=== PATIENT | female | born 1950 | race African-American/Black ===

== ENCOUNTER 2016-06-29 09:04 | Observation (INO) | payer MEDICARE ==
[~2016-06-29] VITALS: Ht 157.5 cm; Wt 75.2 kg
[~2016-06-29 09:04] MED LIST: ACETAMIN500 M1 OR; ACYCLOVIR800 MG OR; ADLT ASA LOW81 MG; ALBUTEROL0.5 % IN; AMBIEN5 MG PO; AMLODIPINE10 MG PO; AMOXICILLIN500 MG OR; AMOXICILLIN875 MG OR; ASPIRIN ADULT L81 MG PO; BD INS 0.5ML 31G5/16 SC; CHERATUSSIN OR; CIPRO500 MG PO; DILAUDID2 MG PO; DIOVAN160 MG PO; DIOVAN80 MG PO; DOXYCYCL HYC100 M3 OR; DUONEB IN; FLEXERIL OR; FLEXERIL5 MG PO; GENTAMICIN SULF5 ML OP; HUMULIN 70/30 SC; LABETALOL200 MG PO; LABETALOL300 MG PO; LORAZEPAM1 MG PO; LORTAB 5 OR; LORTAB 7.5; LORTAB 7.5 OR; LORTAB5 OR; MEDDOSEPAK PO; NORVASC PO; NORVASC10 MG OR; NORVASC10 MG PO; NOVOLIN 70/30 INNLT SC; NOVOLIN 70/30 SC; NOVOLIN 701000 UNITS SC; PERCOCET 5/325M1 TAB PO; PREDNISONE20 MG OR; PRILOSEC20 MG/CAP PO; PRILOSEC40 MG PO; RENVELA800 MG PO; RESTORIL15 M1 OR; RESTORIL15 MG PO; TRAMADOL HCL50 MG PO; ULTRAM50 M1 OR; ULTRAM50 MG OR; VICOPROFEN OR; ZOFRAN4 MG/TAB PO; [UNRECOGNIZED DRUG - OTHER] PO
[2016-06-29 10:31] LABS: HEMATOCRIT 34.5 % (37.0-47.0); HEMOGLOBIN 10.9 g/dl (12.0-16.0); IMMATURE GRANULOCYTES 0.5 % (0.0-1.0); MEAN CELL VOLUME 103.6 fL CALC (80.0-100.0); MEAN CORPUSCULAR HGB 32.7 pG CALC (26.0-32.0); MEAN CORPUSCULAR HGB CONC 31.6 g/L CALC (32.0-36.0); NEUT# 4.25 thou/uL (2.00-7.15); RED BLOOD COUNT 3.33 mill/uL (4.20-5.60); RED CELL DISTRI WIDTH 12.1 % (11.5-15.5)
[2016-06-29 11:22] LABS: ALBUMIN 4.2 g/dL (3.2-5.0); BILIRUBIN, TOTAL 0.6 mg/dL (0.0-1.4); CALCIUM 9.7 mg/dL (8.4-10.2); POTASSIUM 4.4 mmol/l (3.5-5.1); TOTAL PROTEIN 7.4 g/dL (6.3-8.2)
[2016-06-29 11:24] LABS: CREATININE 5.5 mg/dL (0.5-1.0)
[2016-06-29 11:27] LABS: INFLUENZA A NONE DETECTED (NONE DETECT); INFLUENZA B NONE DETECTED (NONE DETECT)
[2016-06-29 19:20] VITALS: BP 155/77
[2016-06-29 23:35] VITALS: BP 125/66
[2016-06-30 04:25] VITALS: BP 150/74
[2016-06-30 06:19] LABS: HEMATOCRIT 33.1 % (37.0-47.0); HEMOGLOBIN 10.1 g/dl (12.0-16.0); IMMATURE GRANULOCYTES 0.2 % (0.0-1.0); MEAN CELL VOLUME 105.4 fL CALC (80.0-100.0); MEAN CORPUSCULAR HGB 32.2 pG CALC (26.0-32.0); MEAN CORPUSCULAR HGB CONC 30.5 g/L CALC (32.0-36.0); NEUT# 2.97 thou/uL (2.00-7.15); RED BLOOD COUNT 3.14 mill/uL (4.20-5.60); RED CELL DISTRI WIDTH 12.7 % (11.5-15.5)
[2016-06-30 06:34] LABS: ALBUMIN 3.8 g/dL (3.2-5.0); BILIRUBIN, TOTAL 0.5 mg/dL (0.0-1.4); CALCIUM 9.5 mg/dL (8.4-10.2); POTASSIUM 4.4 mmol/l (3.5-5.1); TOTAL PROTEIN 6.8 g/dL (6.3-8.2)
[2016-06-30 06:42] LABS: CREATININE 7.3 mg/dL (0.5-1.0)
[2016-06-30 08:24] VITALS: BP 157/69
[2016-06-30 08:26] VITALS: BP 157/69
[2016-06-30] MEDS ORDERED: DIOVAN160 MG PO (08:30)
[2016-06-30] MEDS ORDERED: PERCOCET 5/321 COMBO PO (08:37)
== END 2016-06-30 09:24 | disposition home or self-care (01) ==
LOC: ENPENDDIS → ED 09:04 → ED-I 12:34 → ED 13:15 → MS2 13:16 → ED-I 13:54 → ED 13:54 → MS2 06-30 09:24
PROVIDERS: Emergency Medicine; ADMIT Internal Medicine Geriatric Medicine; ATTEND Internal Medicine Geriatric Medicine
DX: R07.9 Chest pain, unspecified (principal); E11.22 Type 2 diabetes mellitus with diabetic chronic kidney disease; I12.0 Hypertensive chronic kidney disease with stage 5 chronic kidney disease or end stage renal disease; N18.6 End stage renal disease; S80.01XA Contusion of right knee, initial encounter; W22.09XA Striking against other stationary object, initial encounter; M19.90 Unspecified osteoarthritis, unspecified site; J40 Bronchitis, not specified as acute or chronic; R94.31 Abnormal electrocardiogram [ECG] [EKG]; Z99.2 Dependence on renal dialysis; Z79.4 Long term (current) use of insulin

== ENCOUNTER 2017-05-04 16:20 | Emergency (ER) | payer MEDICARE ==
[~2017-05-04] VITALS: Ht 157.5 cm; Wt 73.7 kg
[~2017-05-04 16:20] MED LIST changes: +PERCOCET 5/321 COMBO PO
[2017-05-04] MEDS ORDERED: EMLA CREAM5 GM/TUBE EX (17:03)
[2017-05-04 18:20] VITALS: BP 122/63
== END 2017-05-04 18:20 | disposition home or self-care (01) ==
LOC: ED 16:20
DX: T82.838A Hemorrhage due to vascular prosthetic devices, implants and grafts, initial encounter (principal); I12.0 Hypertensive chronic kidney disease with stage 5 chronic kidney disease or end stage renal disease; N18.6 End stage renal disease; Z99.2 Dependence on renal dialysis; Z79.899 Other long term (current) drug therapy; R06.02 Shortness of breath

== ENCOUNTER 2017-06-02 03:49 | Observation (INO) | payer MEDICARE ==
[~2017-06-02] VITALS: Ht 157.5 cm; Wt 71.4 kg
[~2017-06-02 03:49] MED LIST changes: +EMLA CREAM5 GM/TUBE EX
[2017-06-02] MEDS ORDERED: ELIQUIS2.5 MG PO (04:50)
[2017-06-02] MEDS ORDERED: ZETIA10 MG PO (04:53)
[2017-06-02] MEDS ORDERED: OXYCODONE HCL5 MG PO (04:55)
[2017-06-02 05:56] LABS: HEMATOCRIT 31.3 % (37.0-47.0); HEMOGLOBIN 9.6 g/dl (12.0-16.0); IMMATURE GRANULOCYTES 0.4 % (0.0-1.0); MEAN CORPUSCULAR HGB 31.9 pG CALC (26.0-32.0); MEAN CORPUSCULAR HGB CONC 30.7 g/L CALC (32.0-36.0); NEUT# 3.66 thou/uL (2.00-7.15); RED BLOOD COUNT 3.01 mill/uL (4.20-5.60); RED CELL DISTRI WIDTH 14.6 % (11.5-15.5)
[2017-06-02 06:07] LABS: BILIRUBIN, TOTAL 0.5 mg/dL (0.0-1.4); POTASSIUM 4.2 mmol/l (3.5-5.1); TOTAL PROTEIN 7.2 g/dL (6.3-8.2)
[2017-06-02 09:51] LABS: URINE BILIRUBIN - DIPSTICK NEGATIVE (NEGATIVE); URINE BLOOD DIPSTICK TRACE-INTACT (NEGATIVE); URINE COLOR YELLOW; URINE GLUCOSE - DIPSTICK 250 mg/dL (NEGATIVE); URINE KETONE NEGATIVE (NEGATIVE); URINE LEUK ESTERASE NEGATIVE (NEGATIVE); URINE NITRITE - DIPSTICK NEGATIVE (Negative); URINE PH 8.5 (4.5-8.0); URINE PROTEIN - DIPSTICK 100 mg/dL (NEG-TRACE); URINE UROBILINOGEN - DIPSTICK 0.2 E.U./dL (0.2)
[2017-06-02 09:52] LABS: URINE CLARITY SL CLOUDY; URINE EPITHELIAL CELLS FEW EPI/hpf (0-FEW); URINE RBC 0-2 RBC/hpf (0-5)
[2017-06-02 10:50] VITALS: BP 178/72
[2017-06-02 15:15] VITALS: BP 168/71
[2017-06-02 17:31] VITALS: BP 148/78
[2017-06-02 20:10] VITALS: BP 136/73
[2017-06-03 00:30] VITALS: BP 115/79
[2017-06-03 04:35] VITALS: BP 150/74
[2017-06-03 05:17] LABS: ALBUMIN 3.5 g/dL (3.2-5.0); BILIRUBIN, TOTAL 0.3 mg/dL (0.0-1.4); POTASSIUM 4.5 mmol/l (3.5-5.1); TOTAL PROTEIN 6.5 g/dL (6.3-8.2)
[2017-06-03 05:20] LABS: CREATININE 6.7 mg/dL (0.5-1.0)
[2017-06-03 05:41] LABS: HEMOGLOBIN 9.5 g/dl (12.0-16.0); MEAN CELL VOLUME 104.4 fL CALC (80.0-100.0); MEAN CORPUSCULAR HGB CONC 30.6 g/L CALC (32.0-36.0); RED BLOOD COUNT 2.97 mill/uL (4.20-5.60); RED CELL DISTRI WIDTH 14.8 % (11.5-15.5)
[2017-06-03 07:31] VITALS: BP 160/82
[2017-06-03 15:38] VITALS: BP 117/59
[2017-06-03 19:00] VITALS: BP 113/51
[2017-06-04 00:06] VITALS: BP 114/60
[2017-06-04 04:00] VITALS: BP 118/58
[2017-06-04 05:11] LABS: HEMATOCRIT 30.2 % (37.0-47.0); HEMOGLOBIN 9.1 g/dl (12.0-16.0); IMMATURE GRANULOCYTES 0.2 % (0.0-1.0); MEAN CELL VOLUME 105.6 fL CALC (80.0-100.0); MEAN CORPUSCULAR HGB 31.8 pG CALC (26.0-32.0); MEAN CORPUSCULAR HGB CONC 30.1 g/L CALC (32.0-36.0); NEUT# 2.28 thou/uL (2.00-7.15); RED BLOOD COUNT 2.86 mill/uL (4.20-5.60); RED CELL DISTRI WIDTH 14.9 % (11.5-15.5)
[2017-06-04 05:25] LABS: ALBUMIN 3.5 g/dL (3.2-5.0); BILIRUBIN, TOTAL 0.4 mg/dL (0.0-1.4); POTASSIUM 5.1 mmol/l (3.5-5.1); TOTAL PROTEIN 6.5 g/dL (6.3-8.2)
[2017-06-04 05:27] LABS: CREATININE 8.6 mg/dL (0.5-1.0)
[2017-06-04 08:12] VITALS: BP 132/64
[2017-06-04 08:17] VITALS: BP 132/64
[2017-06-04] MEDS ORDERED: OXYCODONE HCL5 MG PO (09:19)
[2017-06-04 09:58] LABS: PROTHROMBIN TIME 10.6 SECONDS (9.0-12.5)
== END 2017-06-04 10:49 | disposition home or self-care (01) ==
LOC: ED 03:49 → ED-I 09:11 → ED 09:41 → MS2 09:42
PROVIDERS: Emergency Medicine; Nurse Practitioner Family; ADMIT Internal Medicine; ATTEND Internal Medicine
DX: R07.9 Chest pain, unspecified (principal); R10.84 Generalized abdominal pain; I13.11 Hypertensive heart and chronic kidney disease without heart failure, with stage 5 chronic kidney disease, or end stage renal disease; E11.22 Type 2 diabetes mellitus with diabetic chronic kidney disease; N18.6 End stage renal disease; Z99.2 Dependence on renal dialysis; I25.10 Atherosclerotic heart disease of native coronary artery without angina pectoris; J45.909 Unspecified asthma, uncomplicated; M79.89 Other specified soft tissue disorders; N63.20 Unspecified lump in the left breast, unspecified quadrant; Z79.01 Long term (current) use of anticoagulants
CPT/HCPCS: S0164

== ENCOUNTER 2017-06-08 14:22 | Emergency (ER) | payer MEDICARE ==
[~2017-06-08] VITALS: Ht 157.5 cm; Wt 71.2 kg
[~2017-06-08 14:22] MED LIST changes: +ELIQUIS2.5 MG PO; +OXYCODONE HCL5 MG PO; +ZETIA10 MG PO
[2017-06-08 15:06] LABS: HEMATOCRIT 30.4 % (37.0-47.0); HEMOGLOBIN 9.7 g/dl (12.0-16.0); IMMATURE GRANULOCYTES 0.5 % (0.0-1.0); MEAN CORPUSCULAR HGB 31.9 pG CALC (26.0-32.0); MEAN CORPUSCULAR HGB CONC 31.9 g/L CALC (32.0-36.0); NEUT# 2.28 thou/uL (2.00-7.15); RED BLOOD COUNT 3.04 mill/uL (4.20-5.60); RED CELL DISTRI WIDTH 14.2 % (11.5-15.5)
[2017-06-08 15:26] LABS: BILIRUBIN, TOTAL 0.5 mg/dL (0.0-1.4); TOTAL PROTEIN 7.1 g/dL (6.3-8.2)
[2017-06-08 15:29] LABS: CREATININE 3.2 mg/dL (0.5-1.0); POTASSIUM 3.4 mmol/l (3.5-5.1)
[2017-06-08] MEDS ORDERED: PERCOCET 5/325M1 TAB PO (16:55)
[2017-06-08] MEDS ORDERED: COLACE100 MG PO (16:55)
[2017-06-08 17:19] VITALS: BP 178/78
== END 2017-06-08 18:03 | disposition home or self-care (01) ==
LOC: ED 14:22
PROVIDERS: Emergency Medicine
DX: R10.84 Generalized abdominal pain (principal); K59.00 Constipation, unspecified; I13.11 Hypertensive heart and chronic kidney disease without heart failure, with stage 5 chronic kidney disease, or end stage renal disease; N18.6 End stage renal disease; Z99.2 Dependence on renal dialysis; R94.31 Abnormal electrocardiogram [ECG] [EKG]

== ENCOUNTER 2017-06-22 05:53 | Day surgery (SDC) | payer MEDICARE ==
[~2017-06-22] VITALS: Ht 157.5 cm; Wt 70.8 kg
[~2017-06-22 05:53] MED LIST changes: +COLACE100 MG PO; +COUMADIN2.5 MG PO
[2017-06-22 09:09] LABS: ALBUMIN 3.8 g/dL (3.2-5.0); BILIRUBIN, TOTAL 0.5 mg/dL (0.0-1.4); TOTAL PROTEIN 6.9 g/dL (6.3-8.2)
[2017-06-22 09:11] LABS: CREATININE 7.7 mg/dL (0.5-1.0); POTASSIUM 4.8 mmol/l (3.5-5.1)
[2017-06-22 09:30] VITALS: BP 116/56
== END 2017-06-22 09:50 | disposition home or self-care (01) ==
LOC: ENDO 05:53 → ORM 07:00 → ENDO 08:00
PROVIDERS: Nurse Anesthetist, Certified Registered; ATTEND Internal Medicine Gastroenterology
PROC: 0DBN8ZX Excision of Sigmoid Colon, Via Natural or Artificial Opening Endoscopic, Diagnostic (ICD-10-PCS; principal; 2017-06-22)
DX: K57.32 Diverticulitis of large intestine without perforation or abscess without bleeding (principal); K51.90 Ulcerative colitis, unspecified, without complications; K63.5 Polyp of colon; K22.2 Esophageal obstruction; K64.4 Residual hemorrhoidal skin tags; K64.8 Other hemorrhoids; K44.9 Diaphragmatic hernia without obstruction or gangrene; I10 Essential (primary) hypertension; E11.9 Type 2 diabetes mellitus without complications; Z79.01 Long term (current) use of anticoagulants; Z86.010 Personal history of colon polyps

== ENCOUNTER 2018-06-09 19:12 | Emergency (ER) | payer MEDICARE ==
[~2018-06-09] VITALS: Ht 157.5 cm; Wt 66.0 kg
[2018-06-09] MEDS ORDERED: AFEDITAB60 MG PO (20:21)
[2018-06-09 20:31] VITALS: BP 156/89
[2018-06-09 20:31] LABS: HEMATOCRIT 39.5 % (37.0-47.0); IMMATURE GRANULOCYTES 0.2 % (0.0-5.0); MEAN CELL VOLUME 103.1 fL CALC (80.0-100.0); MEAN CORPUSCULAR HGB 31.3 pG CALC (26.0-32.0); MEAN CORPUSCULAR HGB CONC 30.4 g/L CALC (32.0-36.0); NEUT# 3.22 thou/uL (2.00-7.15); RED BLOOD COUNT 3.83 mill/uL (4.20-5.60); RED CELL DISTRI WIDTH 14.8 % (11.5-15.5)
[2018-06-09 20:35] LABS: ALBUMIN 4.5 g/dL (3.2-5.0); BILIRUBIN, TOTAL 0.6 mg/dL (0.0-1.4); POTASSIUM 4.7 mmol/l (3.5-5.1); TOTAL PROTEIN 7.5 g/dL (6.3-8.2)
[2018-06-09 20:37] LABS: CREATININE 9.1 mg/dL (0.5-1.0)
== END 2018-06-09 20:31 | disposition short-term general hospital (02) ==
LOC: ED 19:12
PROVIDERS: Family Medicine
DX: I44.1 Atrioventricular block, second degree (principal); I10 Essential (primary) hypertension; R06.02 Shortness of breath; R10.33 Periumbilical pain

== ENCOUNTER 2018-06-20 15:15 | Observation (INO) | payer MEDICARE ==
[~2018-06-20] VITALS: Ht 157.5 cm; Wt 68.2 kg
[~2018-06-20 15:15] MED LIST changes: +AFEDITAB60 MG PO
--- NOTE | 2018-06-20 15:34 | NUR ---
PT TO ROOM VIA EMS PT STATES FEELING WEAK THIS MORNING AND HAS FALLED TWICE. PT STATES LEFT SHOULDER PAIN FROM FALL THAT TRACELS DOWN THE ARM. PT IS AOX4. 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 NEW DIALYSIS PORT IN RIGHT THIGH. PT DENIES ANY C/P, SOB, N/V. MOTHER AT BEDSIDE.
[2018-06-20] MEDS ORDERED: ASPIRIN ADULT L81 MG PO (15:49)
[2018-06-20] MEDS ORDERED: CHLORTHALID25 MG PO (15:50)
[2018-06-20] MEDS ORDERED: LOSARTAN POTASS25 MG PO (15:51)
[2018-06-20] MEDS ORDERED: GABAPENTIN100 MG PO (15:51)
[2018-06-20] MEDS ORDERED: LABETALOL100 MG PO (15:52)
[2018-06-20] MEDS ORDERED: TYLENOL325 MG PO (15:54)
[2018-06-20] MEDS ORDERED: ALBUTEROL SUL0.083 % IN (15:55)
[2018-06-20] MEDS ORDERED: HYDROCO/APAP1 TA9 PO (15:57)
[2018-06-20] MEDS ORDERED: MILK OF MAG30 ML/UDC PO (15:57)
[2018-06-20] MEDS ORDERED: TEMAZEPAM15 MG PO (15:58)
--- NOTE | 2018-06-20 16:06 | NUR ---
PT WITH FAMILY AT BEDSIDE. CONVERSING. NO SIGNS OF DISTRESS. PT REPORTS RIGHT WRIST PAIN. MD NOTIFIED.
[2018-06-20 16:30] LABS: HEMATOCRIT 35.6 % (37.0-47.0); HEMOGLOBIN 10.3 g/dl (12.0-16.0); IMMATURE GRANULOCYTES 0.7 % (0.0-5.0); MEAN CELL VOLUME 105.3 fL CALC (80.0-100.0); MEAN CORPUSCULAR HGB 30.5 pG CALC (26.0-32.0); MEAN CORPUSCULAR HGB CONC 28.9 g/L CALC (32.0-36.0); NEUT# 3.26 thou/uL (2.00-7.15); RED BLOOD COUNT 3.38 mill/uL (4.20-5.60); RED CELL DISTRI WIDTH 14.7 % (11.5-15.5)
--- NOTE | 2018-06-20 16:51 | NUR ---
PT RESTING WITH EYES CLOSED. PACED ON CARDIAC MONTIOR WITH HR OF 72. NO SIGNS OF DISTRESS.
[2018-06-20 17:14] LABS: ALBUMIN 4.4 g/dL (3.2-5.0); BILIRUBIN, TOTAL 0.4 mg/dL (0.0-1.4); TOTAL PROTEIN 7.3 g/dL (6.3-8.2)
[2018-06-20 17:22] LABS: CREATININE 7.4 mg/dL (0.5-1.0); POTASSIUM 6.2 mmol/l (3.5-5.1)
--- NOTE | 2018-06-20 17:44 | NUR ---
pt sleeping soundly, awakens to tactile stimuli. ER MD at bedside.
--- NOTE | 2018-06-20 18:05 | NUR ---
PT AWAKEN FOR SCHEDULED MEDS. TOLERATED WELL. DISCUSSED MD ON PHONE WITH PRIMARY (DR WESTON)
--- NOTE | 2018-06-20 19:09 | NUR ---
DINNER TRAY BROUGHT TO PT BY TITLE CHECKER
--- NOTE | 2018-06-20 19:32 | NUR ---
TO FLOOR VIA STRETCHER ON POCKET MONITOR. PT FINISHED DINNER TRAY. PT WAS WALKED TO BE WITH MUCH ASSIST WITH 2 STAFF. SPASTIC MOVEMENTS OF LEGS.
--- NOTE | 2018-06-20 19:40 | NUR ---
PT. ARRIVED TO THE FLOOR VIA STRETCHER ACCOMPANIED BY ER NURSE; CHAPERONE IN AT BEDSIDE TO OBTAIN VS; PT. IS A MAX ASSIST WITH TRANSFERRING FROM STRETCHER TO BED; WILL BE IN SHORTLY TO ASSESS.
--- NOTE | 2018-06-20 20:31 | NUR ---
PT. RESTING IN BED WITH EYES CLOSED AND SNORING; AWAKENED FOR ADMISSION ASSESSMENT AND COMPLETED. PT. IS DROWSY BUT ABLE TO GIVE PMH; PT. 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 HAS DIALYSIS PORT TO RIGHT LEG WITH DRESSING COVERING; CDI. IV SITE PATENT TO LEFT WRIST AND ORDERED IVF HUNG. PT. QUESTIONS THIS E BUSINESS SPECIALIST ABOUT HOME MEDICATIONS; WILL CALL MD SHORTLY FOR FURTHER ORDERS; UPDATED ON POC. PT. IS INSTRUCTED ON HOW TO USE CALL LIGHT AND IS INFORMED NOT TO GET OOB ALONE PT. DID REPORT THAT SHE FELL 2X'S TODAY PRIOR TO ER ARRIVAL. BED ALARM IS SET WELL FOR SAFETY PRECAUTIONS. ENCOURAGED TO CALL FOR ANY NEEDS; CALL LIGHT IS IN REACH.
[2018-06-20 20:45] VITALS: BP 172/87
[2018-06-20 22:10] VITALS: BP 176/76
[2018-06-20 22:14] LABS: CREATININE 7.5 mg/dL (0.5-1.0); POTASSIUM 5.8 mmol/l (3.5-5.1)
--- NOTE | 2018-06-20 22:15 | NUR ---
SPOKE WITH DR. WESTON AND NOTIFIED HIM OF LATEST B/P 176/76 WELL PT'S HOME MEDICATIONS NOT BEING ORDERED; ALSO NOTIFIED HIM OF LATEST POTASSIUM AND CREATININE LEVELS; NEW ORDERS RECEIVED AT THIS TIME AND TO BE CARRIED OUT.
[2018-06-21 00:35] VITALS: BP 187/86
--- NOTE | 2018-06-21 00:41 | NUR ---
PT. SLEEPING; V/P OBTAINED AND IS 187/86, NOTIFIED DR. WESTON AND ORDERS RECEIVED AND TO BE CARRIED OUT.
--- NOTE | 2018-06-21 01:07 | NUR ---
PT. MEDICATED WITH ONE TIME ORDER OF LABETOLOL IV PER ORDER FOR ELEVATED B/P; WILL REASSESS AND CONTINUE TO MONITOR.
[2018-06-21 02:20] VITALS: BP 177/80
--- NOTE | 2018-06-21 02:20 | NUR ---
B/P REASSESSED AND NOW DOWN TO 177/80; WILL CONTINUE TO MONITOR.
[2018-06-21 03:18] VITALS: BP 185/87
--- NOTE | 2018-06-21 03:18 | NUR ---
REASSESSED B/P; NOW IS ; NOTIFIED DR. WESTON OF THIS AND OF LAST ADMINISTRATIONS OF LABETELOL; NEW ORDERS RECEIVED AND TO BE CARRIED OUT.
[2018-06-21 05:03] VITALS: BP 159/77
[2018-06-21 05:15] LABS: HEMOGLOBIN 9.3 g/dl (12.0-16.0); IMMATURE GRANULOCYTES 0.4 % (0.0-5.0); MEAN CORPUSCULAR HGB 30.8 pG CALC (26.0-32.0); MEAN CORPUSCULAR HGB CONC 29.1 g/L CALC (32.0-36.0); NEUT# 2.78 thou/uL (2.00-7.15); RED BLOOD COUNT 3.02 mill/uL (4.20-5.60); RED CELL DISTRI WIDTH 14.9 % (11.5-15.5)
[2018-06-21 05:48] LABS: ALBUMIN 3.6 g/dL (3.2-5.0); BILIRUBIN, TOTAL 0.3 mg/dL (0.0-1.4); TOTAL PROTEIN 6.2 g/dL (6.3-8.2)
[2018-06-21 05:50] LABS: CREATININE 7.8 mg/dL (0.5-1.0); POTASSIUM 5.9 mmol/l (3.5-5.1)
--- NOTE | 2018-06-21 06:28 | NUR ---
DR. WESTON NOTIFIED OF CRITICAL CREATININE WELL POTASSIUM LEVEL; NO NEW ORDERS RECEIVED AT THIS TIME; PER MD HE WOULD LIKE SLIMER TO CALL [facility] TO CHANGE TIME THIS AM FROM 0700 TO 1030; CALLED AND SPOKE TO SLIMER AND NOTIFIED HER OF THIS.
--- NOTE | 2018-06-21 06:33 | NUR ---
PER PILLOWCASE SEWER SHE SPOKE WITH DIALYSIS CENTER AND PT'S CHAIR IS BOOKED FOR 1100 AND HAS TO BE THERE BY 1045.
--- NOTE | 2018-06-21 07:20 | NUR ---
PT REPORT RECIEVED FROM JAYANT BHATT. PT SLEEPING. NO S/S OF DISTRESS. CALL LIGHT IN REACH. WILL CONTINUE TO MONITOR.
[2018-06-21 07:42] VITALS: BP 160/95
--- NOTE | 2018-06-21 07:42 | NUR ---
PT A/O X3. SPEECH IS CLEAR. RESP SHALLOW. LUNG SOUNDS CLEAR. TELE IN PLACE. BOWEL SOUNDS ACTIVE X4. STRONG RADIAL AND PEDAL PULSES. #22 LW NS @100. SITE APPEARS HEALTHY. RT UPPER THIGH PORT INTACT. PT DENIES ANY PAIN OR NEEDS. POC DISCUSSED. SAFETY PRECAUTIONS IN PLACE. CALL LIGHT IN REACH. WILL CONTINUE TO MONITOR.
[2018-06-21] MEDS ORDERED: PRILOSEC20 MG/CAP PO (08:29)
[2018-06-21] MEDS ORDERED: AMBIEN5 MG PO (08:29)
--- NOTE | 2018-06-21 09:07 | NUR ---
D/C INSTRUCTIONS DISCUSSED W/ PT. PT STATES UNDERSTANDING. IV REMOVED. CATHETER INTACT. TELE REMOVED. SENIOR LIVING AID TO ASSISTANCE PT BACK TO SENIOR LIVING VIA WC.
--- NOTE | 2018-06-21 09:15 | NUR ---
Discharge instructions given. Patient verbalizes understanding of same. Discharged in stable condition via Wheelchair to [facility] with *Other. All belongings sent with pt.
== END 2018-06-21 09:29 ==
LOC: ED 15:15 → ED-I 17:50 → ED 17:58 → MS2 17:59 → ED 17:59 → MS2 17:59 → ED 18:10 → MS2 18:11
PROVIDERS: Emergency Medicine; ADMIT Internal Medicine Geriatric Medicine; ATTEND Internal Medicine Geriatric Medicine
DX: E87.5 Hyperkalemia (principal); I12.0 Hypertensive chronic kidney disease with stage 5 chronic kidney disease or end stage renal disease; E11.22 Type 2 diabetes mellitus with diabetic chronic kidney disease; N18.6 End stage renal disease; I25.10 Atherosclerotic heart disease of native coronary artery without angina pectoris; M19.90 Unspecified osteoarthritis, unspecified site; M25.511 Pain in right shoulder; R25.2 Cramp and spasm; M25.541 Pain in joints of right hand; Z99.2 Dependence on renal dialysis; Z95.0 Presence of cardiac pacemaker

== ENCOUNTER 2018-07-06 21:08 | Observation (INO) | payer MEDICARE ==
[~2018-07-06] VITALS: Ht 157.5 cm; Wt 72.6 kg
[~2018-07-06 21:08] MED LIST changes: +ALBUTEROL SUL0.083 % IN; +CHLORTHALID25 MG PO; +GABAPENTIN100 MG PO; +HYDROCO/APAP1 TA9 PO; +LABETALOL100 MG PO; +LOSARTAN POTASS25 MG PO; +MILK OF MAG30 ML/UDC PO; +TEMAZEPAM15 MG PO; +TYLENOL325 MG PO
--- NOTE | 2018-07-06 21:09 | NUR ---
TO ROOM 6 VIA STRETCHER BY EMS
--- NOTE | 2018-07-06 21:15 | NUR ---
Pt to room # 6 via EMS stretcher
--- NOTE | 2018-07-06 21:20 | NUR ---
Pt c/o chest pain. EKG done at this time
[2018-07-06 22:17] LABS: HEMATOCRIT 35.9 % (37.0-47.0); HEMOGLOBIN 11.1 g/dl (12.0-16.0); IMMATURE GRANULOCYTES 0.5 % (0.0-5.0); MEAN CELL VOLUME 101.4 fL CALC (80.0-100.0); MEAN CORPUSCULAR HGB 31.4 pG CALC (26.0-32.0); MEAN CORPUSCULAR HGB CONC 30.9 g/L CALC (32.0-36.0); NEUT# 5.85 thou/uL (2.00-7.15); RED BLOOD COUNT 3.54 mill/uL (4.20-5.60); RED CELL DISTRI WIDTH 15.5 % (11.5-15.5)
--- NOTE | 2018-07-06 22:29 | NUR ---
PATIENT MEDICATED WITH PROTONIX AND CLONIDINE ORDERED. WILL MONITOR BP FOR EFFECT.
[2018-07-06 22:33] LABS: TOTAL PROTEIN 7.4 g/dL (6.3-8.2)
[2018-07-06 22:34] LABS: ALBUMIN 4.4 g/dL (3.2-5.0); BILIRUBIN, TOTAL 0.5 mg/dL (0.0-1.4); POTASSIUM 5.5 mmol/l (3.5-5.1)
[2018-07-06 22:35] LABS: CREATININE 8.8 mg/dL (0.5-1.0)
--- NOTE | 2018-07-06 23:30 | NUR ---
B/P 183/79. PT HAS NOT VOMITED SINCE ADMIT. NO BLEEDING NOTED
--- NOTE | 2018-07-07 00:14 | NUR ---
MEDICATED FOR B/P 175/81
--- NOTE | 2018-07-07 01:00 | NUR ---
B/P 131/60. CALLED TO FLOOR FOR REPORT.
--- NOTE | 2018-07-07 01:38 | NUR ---
REPORT GIVEN TO JAYANT TORO.
--- NOTE | 2018-07-07 01:43 | NUR ---
Admission Note Report Given to: JAYANT TORO. Transported by: Wheelchair X Stretcher Transported with: X Nurse Transporter X Patent IV O2 X Family Partner
--- NOTE | 2018-07-07 01:53 | NUR ---
PT ARRIVED TO THE FLOOR VIA STRETCHER ACCOMPANIED BY ED NURSE. PT AMBULATED TO BED FROM STRECTHER W/VERY WOBBLY UNSTEADY GAIT W/2X ASSIST. PT IS TALKING CLEARLY AND THEN JUMBLES HER WORDS/ED NURSE REPORTS SHE HAS BEEN DOING THAT PRIOR TO ADMISSION AND THIS WAS "HER NORM." WILL ASSESS PT, OBTAIN V/S AND CONTINUE TO MONITOR. PT IS AT THIS TIME ABLE TO ANSWER QUESTION APPROPRIATELY W/CLEAR SPEECH AND THEN WILL START MUMMBLING AND STATING "SEE I CAN'T TALK."
[2018-07-07 02:00] VITALS: BP 165/93
--- NOTE | 2018-07-07 02:30 | NUR ---
PT HAS BEEN ASSESSED AND PROVIDED ADDITIONAL BLANKETS C/O COLD. PT IS ASKING FOR TWO JUICES/PROVIDED. I WAS APPROACHING THE ROOM I COULD HEAR PT TALKING LOUDLY AND WHEN I ENTERED SHE STATED, SEE I CAN'T TALK AND CONTINUED WITH INAUDIBLE MUMBLE AND THEN PROCEEDED TO CALL GOLF BALL INSPECTOR BY NAME W/VERY CLEAR SPEECH AND ASK FOR MORE JUICE AND AN ADDITIONAL PILLOW W/ALL SPEECH VERY CLEAR AND QUICK. CALL LIGHT IS AT BEDSIDE AND PT REMINDED NOT TO AMBULATE W/OUT ASSISTANCE.
[2018-07-07 04:32] VITALS: BP 174/74
--- NOTE | 2018-07-07 05:15 | NUR ---
PT BP ELEVATED AT 184/80 MANUAL TO RIGHT UPPER ARM W/PT SLEEPING SOUNDLY AND AWOKEN FOR V/S ASSESS. HR 73. ED PHYSICIAN NOTIFIED AND ORDERS WERE RECEIVED TO LET HER SLEEP CONTINUE TO MONITOR AND LET MORNING PHYSICIAN ADJUST NEEDED. WILL CONTINUE TO MONITOR.
[2018-07-07 05:19] LABS: HEMATOCRIT 34.6 % (37.0-47.0); HEMOGLOBIN 10.2 g/dl (12.0-16.0); IMMATURE GRANULOCYTES 0.2 % (0.0-5.0); MEAN CORPUSCULAR HGB 30.4 pG CALC (26.0-32.0); MEAN CORPUSCULAR HGB CONC 29.5 g/L CALC (32.0-36.0); NEUT# 4.1 thou/uL (2.00-7.15); RED BLOOD COUNT 3.36 mill/uL (4.20-5.60); RED CELL DISTRI WIDTH 15.7 % (11.5-15.5)
[2018-07-07 05:46] LABS: CREATININE 8.9 mg/dL (0.5-1.0); POTASSIUM 5.5 mmol/l (3.5-5.1)
--- NOTE | 2018-07-07 06:38 | NUR ---
CALLED DR. WESTON REGARDING CRITICAL LABE AND BP/ORDERS RECEIVED.
[2018-07-07 07:00] VITALS: BP 159/83
[2018-07-07 08:00] VITALS: BP 153/60
--- NOTE | 2018-07-07 08:00 | NUR ---
ASSESSMENT IS COMPLTED: IV SITE IS FREE FROM REDNESS OR EDEMA. HR IS REG,PULSES ARE STRONG X4, ABD IS SOFT WITH ACTIVE BS. BREATH SOUNDS ARE CLEAR,BILATERALLY. TELE MONITOR IN PLACE. CONTINUE TO OSBERVE AND MONITOR.
--- NOTE | 2018-07-07 09:00 | NUR ---
IN TO VISIT WITH PT. INFORMED OF ALL THE MEDICATIONS THAT ARE BEING GIVEN TO HELP WITH HER ISSUES. VERBALIZED UNDERSTANDING.
[2018-07-07] MEDS ORDERED: ADALAT CC30 M1 PO (09:18)
[2018-07-07] MEDS ORDERED: OMEPRAZOLE20 MG PO (09:18)
--- NOTE | 2018-07-07 09:30 | NUR ---
ATTEMPTED TO CALL [facility] FOR THE DISCHARGE , PT HAS AN APPOINTMENT FOR DIALYSIS TODAY. CALLED AGAIN [phone], NO ANSWER.
--- NOTE | 2018-07-07 09:50 | NUR ---
10 MORE CALLS TO [facility] NO ANSWER , FAXED A NOTE TO THEM AT 1035 TO HAVE THEM CALL ME THEY RETURNED THE CALL AT 1040. ALL DISCHARGE INSTRUCTIONS GIVEN IV SITE DISCONTINUED CATHETER INTACT. NO REDNESS OR EDEMA. CONTINUE TO OBSERVE AND MONITOR.
--- NOTE | 2018-07-07 10:52 | NUR ---
SPOKE WITH NANDO SABA AT [facility] GAVE REPORT. THEN DR. WESTON CALLED BACK 1120 INQUIRED ABOUT PT NOT GOING TO [facility]. EXPLAINED THE DC TO [facility] THEN TO [facility].
[2018-07-07 11:10] VITALS: BP 141/45
--- NOTE | 2018-07-07 11:35 | NUR ---
ALL DISCHARGE INSTRUCTIONS GIVEN IV SITE DISCONITNUED CATHETER INTACT. Discharge instructions given. Patient verbalizes understanding of same. Discharged in stable condition via Wheelchair to Home with family. All belongings sent with pt.
== END 2018-07-07 11:38 ==
LOC: ED 21:08 → ED-I 23:30 → ED 23:50 → MS2 23:51
PROVIDERS: Family Medicine; ADMIT Internal Medicine Geriatric Medicine; ATTEND Internal Medicine Geriatric Medicine
DX: K92.0 Hematemesis (principal); I12.0 Hypertensive chronic kidney disease with stage 5 chronic kidney disease or end stage renal disease; E11.22 Type 2 diabetes mellitus with diabetic chronic kidney disease; N18.6 End stage renal disease; E87.5 Hyperkalemia; I25.10 Atherosclerotic heart disease of native coronary artery without angina pectoris; F41.1 Generalized anxiety disorder; Z99.2 Dependence on renal dialysis; Z95.0 Presence of cardiac pacemaker; F32.9 Major depressive disorder, single episode, unspecified
CPT/HCPCS: S0164

== ENCOUNTER 2018-08-27 12:49 | Emergency (ER) | payer MEDICARE ==
[~2018-08-27 12:49] MED LIST changes: +ADALAT CC30 M1 PO; +OMEPRAZOLE20 MG PO
== END 2018-08-27 12:55 | disposition left against medical advice (07) ==
LOC: ED 12:49 → LWOBS 12:55
DX: Z91.19 Patient's noncompliance with other medical treatment and regimen (principal)

== ENCOUNTER 2019-03-23 | Emergency (ER) | payer MEDICARE | END 2019-03-23 15:55 | disposition home or self-care (01) | DX: S70.02XA Contusion of left hip, initial encounter (principal); S60.221A Contusion of right hand, initial encounter; S63.501A Unspecified sprain of right wrist, initial encounter; I10 Essential (primary) hypertension; W01.0XXA Fall on same level from slipping, tripping and stumbling without subsequent striking against object, initial encounter; Y92.000 Kitchen of unspecified non-institutional (private) residence as the place of occurrence of the external cause ==

== ENCOUNTER 2019-04-05 | Emergency (ER) | payer MEDICARE ==
[2019-04-05] MEDS ORDERED: POLYTRIM OU (11:11)
[2019-04-05] MEDS ORDERED: CYCLOBENZAPR5 MG PO (11:16)
== END 2019-04-05 11:28 | disposition home or self-care (01) ==
DX: M54.5 Low back pain (principal); H10.9 Unspecified conjunctivitis; I12.9 Hypertensive chronic kidney disease with stage 1 through stage 4 chronic kidney disease, or unspecified chronic kidney disease; N18.9 Chronic kidney disease, unspecified

== ENCOUNTER 2019-06-10 | Emergency (ER) | payer MEDICARE ==
[~2019-06-10] MED LIST changes: +CYCLOBENZAPR5 MG PO; +POLYTRIM OU
[2019-06-10 14:32] LABS: HEMATOCRIT 37.4 % (37.0-47.0); HEMOGLOBIN 11.3 g/dl (12.0-16.0); IMMATURE GRANULOCYTES 0.3 % (0.0-5.0); MEAN CORPUSCULAR HGB 31.1 pG CALC (26.0-32.0); MEAN CORPUSCULAR HGB CONC 30.2 g/dL CAL (32.0-36.0); NEUT# 2.1 thou/uL (2.00-7.15); RED BLOOD COUNT 3.63 mill/uL (4.20-5.60); RED CELL DISTRI WIDTH 14.7 % (11.5-15.5)
[2019-06-10 14:44] LABS: ALBUMIN 4.4 g/dL (3.2-5.0); ALKALINE PHOSPHATASE 95 u/l (38-126); ANION GAP 16 (6-22 (CALC)); BILIRUBIN, TOTAL 0.6 mg/dL (0.0-1.4); BUN 41 mg/dL (8-23); BUN/CREATININE RATIO 5 (12-20 (CALC)); CARBON DIOXIDE 25 mmol/l (22-30); CHLORIDE 99 mmol/l (95-108); GFR 5 ML/MIN (>=60 (CALC)); GFR FOR AFR.AMER. 6 ML/MIN (>=60 (CALC)); POTASSIUM 4.7 mmol/l (3.5-5.1); SGOT/AST 21 u/l (9-36); SODIUM 136 mmol/l (137-146); TOTAL PROTEIN 7.6 g/dL (6.3-8.2)
[2019-06-10 14:48] LABS: PROTHROMBIN TIME 13.2 SECONDS (9.0-12.5)
[2019-06-10 14:49] LABS: INTERNATIONAL NORMALIZED RATIO 1.3 RATIO (0.7-1.3)
[2019-06-10 14:51] LABS: CREATININE 7.9 mg/dL (0.5-1.0)
--- NOTE | 2019-06-12 10:29 | NUR ---
Results faxed to [facility] [phone]. Notifed Nasra on 4N that results would be faxed.
== END 2019-06-10 16:51 ==
DX: I13.2 Hypertensive heart and chronic kidney disease with heart failure and with stage 5 chronic kidney disease, or end stage renal disease (principal); I50.9 Heart failure, unspecified; N18.6 End stage renal disease; Z99.2 Dependence on renal dialysis; J45.901 Unspecified asthma with (acute) exacerbation; Z20.828 Contact with and (suspected) exposure to other viral communicable diseases

== ENCOUNTER 2021-04-01 09:10 | Emergency (ER) | payer MEDICARE ==
[~2021-04-01] VITALS: Ht 157.5 cm; Wt 80.0 kg
[2021-04-01 11:18] LABS: HEMATOCRIT 24.6 % (37.0-47.0); HEMOGLOBIN 7.4 g/dl (12.0-16.0); IMMATURE GRANULOCYTES 0.5 % (0.0-5.0); MEAN CELL VOLUME 99.6 fL CALC (80.0-100.0); MEAN CORPUSCULAR HGB CONC 30.1 g/dL CAL (32.0-36.0); NEUT# 5.76 thou/uL (2.00-7.15); RED BLOOD COUNT 2.47 mill/uL (4.20-5.60); RED CELL DISTRI WIDTH 19.6 % (11.5-15.5)
[2021-04-01 11:37] LABS: POTASSIUM 3.8 mmol/l (3.5-5.1); TOTAL PROTEIN 7.4 g/dL (6.3-8.2)
[2021-04-01 11:53] LABS: ALBUMIN 2.8 g/dL (3.2-5.0); BILIRUBIN, TOTAL 0.3 mg/dL (0.0-1.4); CREATININE 1.8 mg/dL (0.5-1.0)
[2021-04-01 13:10] VITALS: BP 117/51
== END 2021-04-01 13:10 | disposition short-term general hospital (02) ==
LOC: ED 09:10
PROVIDERS: Family Medicine
PROC: 0B113F4 Bypass Trachea to Cutaneous with Tracheostomy Device, Percutaneous Approach (ICD-10-PCS; principal; 2021-04-01)
PROC: 0B113F4 Bypass Trachea to Cutaneous with Tracheostomy Device, Percutaneous Approach (ICD-10-PCS; 2021-04-01)
PROC: 5A1935Z Respiratory Ventilation, Less than 24 Consecutive Hours (ICD-10-PCS; 2021-04-01)
PROC: 0T9B70Z Drainage of Bladder with Drainage Device, Via Natural or Artificial Opening (ICD-10-PCS; 2021-04-01)
PROC: 06HY33Z Insertion of Infusion Device into Lower Vein, Percutaneous Approach (ICD-10-PCS; 2021-04-01)
PROC: 0YHJ33Z Insertion of Infusion Device into Left Lower Leg, Percutaneous Approach (ICD-10-PCS; 2021-04-01)
PROC: 0YHH33Z Insertion of Infusion Device into Right Lower Leg, Percutaneous Approach (ICD-10-PCS; 2021-04-01)
PROC: 30243N1 Transfusion of Nonautologous Red Blood Cells into Central Vein, Percutaneous Approach (ICD-10-PCS; 2021-04-01)
PROC: 30243N1 Transfusion of Nonautologous Red Blood Cells into Central Vein, Percutaneous Approach (ICD-10-PCS; 2021-04-01)
DX: T78.3XXA Angioneurotic edema, initial encounter (principal); J96.00 Acute respiratory failure, unspecified whether with hypoxia or hypercapnia; D62 Acute posthemorrhagic anemia; I10 Essential (primary) hypertension; E11.9 Type 2 diabetes mellitus without complications; Z94.0 Kidney transplant status; Z79.4 Long term (current) use of insulin; Z20.822 Contact with and (suspected) exposure to COVID-19
CPT/HCPCS: P9016